=== PATIENT | female | born 1970 | race Asian ===

== ENCOUNTER 2022-11-02 08:40 | Outpatient (CLI) | payer BC | END 2022-11-02 08:41 | disposition home or self-care (01) | LOC: CSHULT 08:40 | PROVIDERS: ATTEND Family Medicine | DX: R10.13 Epigastric pain (principal); K21.00 Gastro-esophageal reflux disease with esophagitis, without bleeding; Z80.0 Family history of malignant neoplasm of digestive organs | CPT/HCPCS: 76700 ==

== ENCOUNTER 2022-11-24 05:54 | Day surgery (SDC) | payer BC ==
[2022-11-22 14:06] VITALS: BMI 19.9
[2022-11-24] MEDS ORDERED: PROPOFOL 40 ML ONE (06:59)
[2022-11-24] MEDS ORDERED: Lidocaine 1% PF 5 ML VIAL ONE (06:59)
== END 2022-11-24 08:22 | disposition home or self-care (01) ==
LOC: CSHSDC 05:54
PROVIDERS: ATTEND Surgery
PROC: 0DBN8ZX Excision of Sigmoid Colon, Via Natural or Artificial Opening Endoscopic, Diagnostic (ICD-10-PCS; principal; 2022-11-24)
DX: Z12.11 Encounter for screening for malignant neoplasm of colon (principal); K21.9 Gastro-esophageal reflux disease without esophagitis; K63.5 Polyp of colon
CPT/HCPCS: 88305; J2704

== ENCOUNTER 2022-12-08 13:53 | Outpatient (CLI) | payer BC | END 2022-12-08 13:54 | disposition home or self-care (01) | LOC: CSHULT 13:53 | PROVIDERS: ATTEND Family Medicine | DX: R10.2 Pelvic and perineal pain (principal); R93.89 Abnormal findings on diagnostic imaging of other specified body structures | CPT/HCPCS: 76856 ==

== ENCOUNTER 2024-08-02 11:14 | Emergency (ER) | payer BC ==
[2024-08-02] MEDS ORDERED: Lidocaine 1% w/Epinephrine 1:200K 30 ML VIAL ONE (11:58)
[2024-08-02] MEDS ORDERED: Boostrix 0.5 ML (Tdap) VIAL (>/=7 yrs of age) ONE (11:59)
== END 2024-08-02 15:05 | disposition home or self-care (01) ==
LOC: CSHERS 11:14
DX: S06.0X0A Concussion without loss of consciousness, initial encounter (principal); W01.198A Fall on same level from slipping, tripping and stumbling with subsequent striking against other object, initial encounter; Y93.89 Activity, other specified; Y92.59 Other trade areas as the place of occurrence of the external cause; Z23 Encounter for immunization
CPT/HCPCS: 12002; 24560; 70450; 90471; 90715